=== PATIENT | female | born 1965 | race Hispanic/Latino ===

== ENCOUNTER → 2023-03-27 | Outpatient (CLI) | payer BC | END | disposition home or self-care (01) | LOC: LAB 09:30 | PROVIDERS: ATTEND Student in an Organized Health Care Education/Training Program | DX: I26.01 Septic pulmonary embolism with acute cor pulmonale (principal) | CPT/HCPCS: 36415; 80048 ==

== ENCOUNTER → 2023-04-01 | Outpatient (CLI) | payer BC ==
[~2023-04-01] MED LIST: IOHEXOL 350 MG/ML 100ML INFUS..BTL IV ONE
== END | disposition home or self-care (01) ==
LOC: RAH 07:40
PROVIDERS: ATTEND Student in an Organized Health Care Education/Training Program
DX: R18.8 Other ascites (principal); I26.01 Septic pulmonary embolism with acute cor pulmonale; K76.89 Other specified diseases of liver; K80.80 Other cholelithiasis without obstruction; I51.7 Cardiomegaly; M47.9 Spondylosis, unspecified
CPT/HCPCS: 71270; Q9967

== ENCOUNTER → 2023-04-11 | Outpatient (CLI) | payer BC | END | disposition home or self-care (01) | LOC: SHCH 08:49 → EDUNIT# 09:00 | PROVIDERS: ATTEND Student in an Organized Health Care Education/Training Program | DX: I87.2 Venous insufficiency (chronic) (peripheral) (principal); I82.401 Acute embolism and thrombosis of unspecified deep veins of right lower extremity | CPT/HCPCS: 93970 ==

== ENCOUNTER → 2024-02-06 | Outpatient (CLI) | payer BC | END | disposition home or self-care (01) | LOC: SHCH 08:23 | PROVIDERS: ATTEND Student in an Organized Health Care Education/Training Program | DX: I82.409 Acute embolism and thrombosis of unspecified deep veins of unspecified lower extremity (principal) | CPT/HCPCS: 93970 ==